=== PATIENT | male | born 1945 | race Caucasian/White ===

== ENCOUNTER 2019-01-28 08:41 | Outpatient (CLI) | payer MEDICARE ==
--- NOTE | 2019-01-28 10:39 | ULT ---
BILATERAL RENAL ULTRASOUND WITH DOPPLER EVALUATION: Date: 01/28/19 HISTORY: Chronic renal failure. FINDINGS: Real-time imaging of the right and left kidneys were performed. Right kidney measures 10.5 cm and the left kidney measures 10.0 cm in size. No signs of cyst, mass, o r obstruction. Bladder is incompletely distended at the time of this examination and therefore difficult to assess. The bladder wall may be slightly thickened. No focal lesion. DOPPLER EVALUATION WITH SPECTRAL ANALYSIS: Right renal artery velocity measurements are 79 cm/second, left 93 cm/second. Aortic velocities are 8 4 cm/second. Resistive index on the right is 0.61 and on the left is 0.69. IMPRESSION: No evidence of any cyst, mass, or obstruction. Mild cortical thinning noted. No evidence for renal ar rosa elena stenosis. POS: [facility]
== END 2019-01-28 08:42 | disposition home or self-care (01) ==
LOC: BICULT 08:41
PROVIDERS: ATTEND Internal Medicine Nephrology
DX: I13.10 Hypertensive heart and chronic kidney disease without heart failure, with stage 1 through stage 4 chronic kidney disease, or unspecified chronic kidney disease (principal); N18.9 Chronic kidney disease, unspecified; N17.9 Acute kidney failure, unspecified; C83.30 Diffuse large B-cell lymphoma, unspecified site; N40.0 Benign prostatic hyperplasia without lower urinary tract symptoms; N13.9 Obstructive and reflux uropathy, unspecified; R80.9 Proteinuria, unspecified; E78.5 Hyperlipidemia, unspecified; M19.90 Unspecified osteoarthritis, unspecified site; M10.9 Gout, unspecified; N28.89 Other specified disorders of kidney and ureter
CPT/HCPCS: 76700; 76770; 80069; 81003; 82570; 84156; 84550; 85027; 85652; G0103; 36415